=== PATIENT | female | born 1955 | race Caucasian/White ===

== ENCOUNTER 2020-08-29 11:10 | Emergency (ER) | payer BC ==
[~2020-08-29] VITALS: Ht 167.6 cm; Wt 86.2 kg
[2020-08-29] MEDS ORDERED: MINIVELLE1 EAC1 PO (11:20)
[2020-08-29] MEDS ORDERED: METFORMIN HCL500 M3 PO (11:21)
[2020-08-29] MEDS ORDERED: ESTRADIOL PO (11:21)
[2020-08-29] MEDS ORDERED: TRIAMTERENE/HCT1 CA1 PO (11:22)
[2020-08-29] MEDS ORDERED: DRIZALMA SPRINK60 MG PO (11:22)
[2020-08-29] MEDS ORDERED: COZAAR 25 MG TA25 M1 PO (11:23)
[2020-08-29] MEDS ORDERED: TRAMADOL 50 MG50 MG PO (11:23)
[2020-08-29] MEDS ORDERED: GRALISE300 MG PO (11:23)
[2020-08-29] MEDS ORDERED: PROTONIX40 M4 PO (11:24)
[2020-08-29] MEDS ORDERED: DRIZALMA SPRINK30 MG PO (11:24)
[2020-08-29] MEDS ORDERED: SIMVASTATIN40 MG PO (11:25)
[2020-08-29] MEDS ORDERED: MELOXICAM15 MG PO (11:25)
[2020-08-29] MEDS ORDERED: ASA81BEC PO (11:25)
[2020-08-29 11:41] LABS: ABSOLUTE LYMPHOCYTES 1.4 thou/uL (0.8-5.3); ABSOLUTE MONOCYTES 0.3 thou/uL (0.0-1.2); ABSOLUTE NEUTROPHILS 3.4 thou/uL (1.6-8.1); BASOPHILS 0.5 %; EOSINOPHILS 0.5 %; HEMATOCRIT 44.1 % (37.0-47.0); LYMPHOCYTES 26.5 %; MCH 29.9 pg (26.0-34.0); MCV 87.8 fL (80.0-100.0); MONOCYTES 6.6 %; MPV 8.3 fl. (7.2-11.1); NUCLEATED RBCS 0 /100WBC; PLATELET COUNT* 214 thou/uL (150-400); POLYS 65.9 %; RBC 5.03 mil/uL (4.20-5.00); RDW-CV 13.1 % (10.5-14.5); WBC 5.2 thou/uL (4.0-11.0)
[2020-08-29 11:49] LABS: CALCIUM 9.2 mg/dL (8.5-10.1); CREATININE 1.2 mg/dL (0.6-1.3); POTASSIUM 3.8 mmol/L (3.5-5.1)
[2020-08-29 11:51] LABS: APTT 22.5 Seconds (25.0-31.3); PROTIME 10.3 Seconds (9.20-11.50)
[2020-08-29 11:59] LABS: ALBUMIN 3.4 g/dL (3.4-5.0); TOTAL BILIRUBIN 0.3 mg/dL (<0.1-1.0); TOTAL PROTEIN 6.8 g/dL (6.4-8.2)
[2020-08-29 12:49] VITALS: BP 165/70
--- NOTE | 2020-08-29 13:41 | EKG ---
[place] [address] ELECTROCARDIOGRAM REPORT Name: KENNETH SERRANO Room: 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: [facility] : 1955 Requested By: Mike Dunbar Order Number: [id number] MD: Vaughn Mejia Measurements Intervals [place] Rate: 80 P: 14 RI: 190 QRS: -21 QRSD: 119 T: 52 QT: 389 QTc: 449 Interpretive Statements Sinus rhythm Incomplete right bundle branch block Inferior infarct, old, possible Low voltage, precordial leads No previous ECG available for comparison Electronically Signed On 08-29-2020 13:41:15 EQUIPMENT APPLICATION SPECIALIST by Vaughn Mejia [email or web address] <ELECTRONICALLY SIGNED> By: Vaughn Mejia MD, [facility] 08/29/20 1341 1116 1116 Vaughn Mejia MD, [facility] /EPI
== END 2020-08-29 12:50 | disposition home or self-care (01) ==
LOC: M.ERS 11:10
PROVIDERS: Family Medicine
DX: U07.1 COVID-19 (principal); M79.7 Fibromyalgia; Z79.899 Other long term (current) drug therapy; Z79.82 Long term (current) use of aspirin; Z88.1 Allergy status to other antibiotic agents